=== PATIENT | female | born 1945 | race African-American/Black ===

== ENCOUNTER 2018-02-28 10:13 | Inpatient (IN) ==
[2018-02-28] MEDS ORDERED: SODIUM CHLORIDE 0.9% 500 ML IV STA (10:47)
[2018-02-28] MEDS ORDERED: METOCLOPRAMIDE 10 MG/2 ML VIAL IV STA (10:47)
[2018-02-28] MEDS ORDERED: METOCLOPRAMIDE 10 MG/2 ML VIAL ONE (10:51)
[2018-02-28 11:16] LABS: Basophils % 0.2 % (0.0-0.8); Eosinophils % 0.2 % (0.00-10.9); Hemoglobin 12.5 GM/DL (12.0-16.0); Immature Granulocytes % 0.4 %; Immature Granulocytes Absolute 0.04 #; Lymphocytes # 1.2 10*3/uL (1.4-4.0); Lymphocytes % 11.8 % (21.3-54.2); Mean Corpuscular HGB Conc 33.8 GM/DL (32-36); Mean Corpuscular Hemoglobin 27 PG (27-34); Mean Corpuscular Volume 78.4 FL (87-102); Mean Platelet Volume 11.8 FL (9.6-12.0); Monocytes # 0.9 10*3/uL (0.11-0.8); Monocytes % 8.8 % (1.7-12.7); Neutrophils # 7.7 10*3/uL (1.4-7.4); Neutrophils % 78.6 % (38.7-73.9); Platelet Count 232 T/CUMM (130-400); Red Blood Count 4.72 MC/CUMM (3.8-5.5); Red Cell Distribution Width 14.7 % (9.3-17.3); White Blood Count 9.8 T/CUMM (4-12)
[2018-02-28 11:23] LABS: Apearance,Urine CLOUDY (Clear); Bacteria,Urine Few /HPF (Few); Bilirubin,Urine Negative (Negative); Blood, Urine Small mg/dL (Negative); Glucose,Urine (UA) Negative (Negative); Ketones,Urine Negative (Negative); Mucus,Urine Occasional /LPF (Occasional); Nitrite,Urine Negative (Negative); Protein,Urine Negative; Squamous Epithelial Cell,Urine Occasional /HPF (0-10); Urine Color Yellow (Yellow); Urine Specific Gravity 1.004 (1.001-1.035); Urine Urobilinogen < 2.0 EU/DL (0.2-1.0); WBC,Urine 549 /HPF (0-6)
[2018-02-28 11:27] LABS: PT Patient Result 10.6 SECS
[2018-02-28 11:34] LABS: Bilirubin,Total 0.6 MG/DL (0.2-1.0); Calcium 9.4 MG/DL (8.5-10.1); Osmolality,Calculated 257.4 MOS/KG (273-304)
[2018-02-28] MEDS ORDERED: SODIUM CHLORIDE 0.9% 1,000 ML IV STA (12:08)
[2018-02-28] MEDS ORDERED: ACETAMINOPHEN 325 MG TABLET PO PRN (12:23)
[2018-02-28] MEDS ORDERED: DEXTROSE 50% 25 GM/50 ML VIAL IV PRN (12:23)
[2018-02-28] MEDS ORDERED: ONDANSETRON 4 MG/2 ML VIAL IV PRN (12:23)
[2018-02-28] MEDS ORDERED: GLUCAGON 1 MG VIAL IM PRN (12:23)
[2018-02-28] MEDS ORDERED: ALUMINUM/MAGNES/SIMETH MAX STR 30 ML UDCUP PO PRN (12:30)
[2018-02-28] MEDS ORDERED: MAGNESIUM HYDROXIDE SUSP 30 ML UDCUP PO PRN (12:30)
[2018-02-28] MEDS: ENOXAPARIN 40 MG/0.4 ML SYRINGE SUBCUT SCH (14:33)
[2018-02-28] MEDS: PANTOPRAZOLE 40 MG TABLET PO SCH (14:33)
[2018-02-28] MEDS: cefTRIAXone 1,000 MG in SYRINGE 1 EACH IV SCH (14:33)
[2018-02-28] MEDS: SODIUM CHLORIDE 0.9% 1,000 ML IV SCH (14:34)
[2018-02-28] MEDS: INSULIN REGULAR 100 UNIT/ML SUBCUT SCH ×2 (19:12→20:32)
[2018-03-01 06:23] LABS: Calcium 9.2 MG/DL (8.5-10.1); Osmolality,Calculated 276.5 MOS/KG (273-304); Potassium 3.9 MMOL/L (3.5-5.1)
[2018-03-01] MEDS: SODIUM CHLORIDE 0.9% 1,000 ML IV SCH (06:30)
[2018-03-01 06:38] LABS: Basophils % 0.2 % (0.0-0.8); Eosinophils % 0.3 % (0.00-10.9); Hematocrit 38.6 VOL% (35.7-47.0); Hemoglobin 12.7 GM/DL (12.0-16.0); Immature Granulocytes % 0.4 %; Immature Granulocytes Absolute 0.05 #; Lymphocytes # 1.7 10*3/uL (1.4-4.0); Lymphocytes % 15.1 % (21.3-54.2); Mean Corpuscular HGB Conc 32.9 GM/DL (32-36); Mean Corpuscular Hemoglobin 27 PG (27-34); Mean Corpuscular Volume 80.6 FL (87-102); Mean Platelet Volume 11.3 FL (9.6-12.0); Monocytes # 1.2 10*3/uL (0.11-0.8); Monocytes % 10.9 % (1.7-12.7); Neutrophils # 8.1 10*3/uL (1.4-7.4); Neutrophils % 73.1 % (38.7-73.9); Platelet Count 241 T/CUMM (130-400); Red Blood Count 4.79 MC/CUMM (3.8-5.5); Red Cell Distribution Width 14.8 % (9.3-17.3); White Blood Count 11.1 T/CUMM (4-12)
[2018-03-01] MEDS: INSULIN REGULAR 100 UNIT/ML SUBCUT SCH ×2 (08:22→12:26)
[2018-03-01] MEDS ORDERED: DONEPEZIL 10 MG TABLET PO SCH (09:00)
[2018-03-01] MEDS ORDERED: BISOPROLOL 5 MG TABLET PO SCH (09:00)
[2018-03-01] MEDS ORDERED: amLODIPine 10 MG TABLET PO SCH (09:00)
[2018-03-01] MEDS: PANTOPRAZOLE 40 MG TABLET PO SCH (09:13)
[2018-03-01 12:20] VITALS: BP 153/85
[2018-03-01] MEDS: ENOXAPARIN 40 MG/0.4 ML SYRINGE SUBCUT SCH (12:31)
[2018-03-01] MEDS: cefTRIAXone 1,000 MG in SYRINGE 1 EACH IV SCH (12:47)
== END 2018-03-01 15:22 | disposition home or self-care (01) | DRG 640 ==
LOC: N.ED 10:13 → N.EDINP 12:23 → N.2E 14:19
PROVIDERS: ADMIT Internal Medicine; ATTEND Internal Medicine

== ENCOUNTER 2022-02-02 19:09 | Inpatient (IN) ==
[2022-02-02 19:38] LABS: Basophils % 0.3 % (0.0-0.8); Eosinophils # 0.2 10*3/uL (0.0-0.87); Eosinophils % 2.3 % (0.00-10.9); Immature Granulocytes % 0.8 %; Immature Granulocytes Absolute 0.07 #; Lymphocytes % 22.2 % (21.3-54.2); Mean Corpuscular HGB Conc 26.5 GM/DL (32-36); Mean Corpuscular Volume 65.9 FL (87-102); Mean Platelet Volume 11.1 FL (9.6-12.0); Monocytes # 0.9 10*3/uL (0.11-0.8); Monocytes % 9.9 % (1.7-12.7); Neutrophils % 64.5 % (38.7-73.9); Platelet Count 330 T/CUMM (130-400); Red Blood Count 2.58 MC/CUMM (3.8-5.5); Red Cell Distribution Width 18.8 % (9.3-17.3)
[2022-02-02 19:46] LABS: Hemoglobin 4.5 GM/DL (12.0-16.0)
[2022-02-02 20:04] LABS: INR 1.1; PT Patient Result 11.8 SECS (10.5-12.0)
[2022-02-02 20:09] LABS: Alanine Aminotransferase 9 U/L (13-56); Albumin 2.8 G/DL (3.4-5.0); Alkaline Phosphatase 107 U/L (45-117); Aspartate Amino Transferase 13 U/L (0-37); Bilirubin,Total < 0.39 MG/DL (0.20-1.00); Blood Urea Nitrogen 22 MG/DL (7-18); Calcium 9.2 MG/DL (8.5-10.1); Carbon Dioxide 20 MMOL/L (21-32); Chloride 112 MMOL/L (98-107); Glucose 81 MG/DL (74-106); Osmolality,Calculated 282.3 MOS/KG (273-304); Potassium 5.1 MMOL/L (3.5-5.1); Sodium 141 MMOL/L (136-145); Total Protein 6.3 G/DL (6.4-8.2)
[2022-02-02 20:14] LABS: Eosinophils 3 % (0-10); Lymphocytes 20 % (20-55); Total Cells Counted 100
[2022-02-02 20:16] LABS: Polychromasia Slight
[2022-02-02 20:18] LABS: Anisocytosis 1+; Hypochromia 2+; Microcytosis 1+
[2022-02-02 20:21] LABS: Ovalocytes Few
[2022-02-02 20:22] LABS: Tear Drop Cells Few
[2022-02-02] MEDS ORDERED: PANTOPRAZOLE INJ 80 MG in SODIUM CHLORIDE 0.9% 100 ML IV ONE (20:48)
[2022-02-02] MEDS ORDERED: SODIUM CHLORIDE 0.9% 1,000 ML IV PRN (20:56)
[2022-02-02] MEDS ORDERED: ACETAMINOPHEN 325 MG TABLET PO PRN (20:56)
[2022-02-02] MEDS ORDERED: ONDANSETRON 4 MG/2 ML VIAL IV PRN (20:56)
[2022-02-02] MEDS ORDERED: GLUCAGON 1 MG VIAL IM PRN (20:56)
[2022-02-02 21:00] LABS: Platelet Estimate Normal
[2022-02-02] MEDS ORDERED: DEXTROSE 10% 250 ML BAG IV PRN (21:07)
[2022-02-02] MEDS ORDERED: FUROSEMIDE 40 MG/4 ML VIAL IV ONE (21:30)
[2022-02-02] MEDS: DOCUSATE SODIUM 100 MG CAPSULE PO SCH (21:45)
[2022-02-02] MEDS: INSULIN REGULAR 100 UNIT/ML SUBCUT SCH (21:53)
[2022-02-02] MEDS ORDERED: PANTOPRAZOLE 40 MG VIAL IV ONE (21:56)
[2022-02-02] MEDS ORDERED: PANTOPRAZOLE INJ 200 MG in SODIUM CHLORIDE 0.9% 250 ML IV SCH (23:00)
[2022-02-03] MEDS ORDERED: MELATONIN 3 MG TABLET PO PRN (02:34)
[2022-02-03] MEDS: INSULIN REGULAR 100 UNIT/ML SUBCUT SCH ×4 (07:34→22:09)
[2022-02-03 08:27] LABS: Basophils % 0.2 % (0.0-0.8); Eosinophils # 0.2 10*3/uL (0.0-0.87); Eosinophils % 1.2 % (0.00-10.9); Hematocrit 24.8 VOL% (35.7-47.0); Hemoglobin 7.4 GM/DL (12.0-16.0); Immature Granulocytes % 0.6 %; Immature Granulocytes Absolute 0.07 #; Lymphocytes # 1.7 10*3/uL (1.4-4.0); Lymphocytes % 13.5 % (21.3-54.2); Mean Corpuscular HGB Conc 29.8 GM/DL (32-36); Mean Corpuscular Volume 73.6 FL (87-102); Monocytes # 1.2 10*3/uL (0.11-0.8); NRBC # 0.02 10*3/uL; Neutrophils % 74.5 % (38.7-73.9); Platelet Count 300 T/CUMM (130-400); Red Blood Count 3.37 MC/CUMM (3.8-5.5); White Blood Count 12.4 T/CUMM (4-12)
[2022-02-03 08:37] LABS: Calcium 8.6 MG/DL (8.5-10.1); Osmolality,Calculated 281.4 MOS/KG (273-304); Potassium 5.1 MMOL/L (3.5-5.1)
[2022-02-03 09:21] LABS: Hypochromia 1+; Microcytosis 1+; Platelet Estimate Adequate; Target Cells Few
[2022-02-03] MEDS ORDERED: ZIPRASIDONE 20 MG/1 ML VIAL IM ONE (10:51)
[2022-02-03] MEDS: MEMANTINE 10 MG TABLET PO SCH ×2 (11:13→21:59)
[2022-02-03] MEDS: DONEPEZIL 10 MG TABLET PO SCH (11:14)
[2022-02-03] MEDS: amLODIPine 10 MG TABLET PO SCH (11:14)
[2022-02-03] MEDS: SERTRALINE 25 MG TABLET PO SCH (11:15)
[2022-02-03] MEDS: QUEtiapine 25 MG TABLET PO SCH (11:16)
[2022-02-03] MEDS: METOPROLOL TARTRATE 25 MG TABLET PO SCH ×2 (11:17→21:59)
[2022-02-03] MEDS: ATORVASTATIN 40 MG TABLET PO SCH (11:18)
[2022-02-03] MEDS: CALCIUM (CARBONATE)/VITAMIN D 600 MG-400 UNIT TABLET PO SCH (11:18)
[2022-02-03] MEDS: PANTOPRAZOLE 40 MG VIAL IV SCH ×2 (11:19→21:58)
[2022-02-03] MEDS: DOCUSATE SODIUM 100 MG CAPSULE PO SCH ×2 (11:19→21:59)
[2022-02-03] MEDS: rOPINIRole 0.25 MG TABLET PO SCH (11:21)
[2022-02-03] MEDS: SODIUM CHLORIDE 0.9% 1,000 ML IV SCH (13:40)
[2022-02-03] MEDS: traZODone 50 MG TABLET PO SCH (21:58)
[2022-02-04 05:10] LABS: Basophils % 0.3 % (0.0-0.8); Eosinophils # 0.3 10*3/uL (0.0-0.87); Hematocrit 27.5 VOL% (35.7-47.0); Hemoglobin 8.1 GM/DL (12.0-16.0); Immature Granulocytes % 0.6 %; Immature Granulocytes Absolute 0.07 #; Lymphocytes % 16.6 % (21.3-54.2); Mean Corpuscular HGB Conc 29.5 GM/DL (32-36); Mean Corpuscular Volume 73.3 FL (87-102); Monocytes # 1.3 10*3/uL (0.11-0.8); Monocytes % 10.9 % (1.7-12.7); NRBC # 0.02 10*3/uL; Neutrophils % 69.6 % (38.7-73.9); Platelet Count 304 T/CUMM (130-400); Red Blood Count 3.75 MC/CUMM (3.8-5.5); Red Cell Distribution Width 25.2 % (9.3-17.3); White Blood Count 12.2 T/CUMM (4-12)
[2022-02-04 05:23] LABS: Calcium 9.1 MG/DL (8.5-10.1); Osmolality,Calculated 292.4 MOS/KG (273-304); Potassium 4.9 MMOL/L (3.5-5.1)
[2022-02-04] MEDS: CALCIUM (CARBONATE)/VITAMIN D 600 MG-400 UNIT TABLET PO SCH (09:10)
[2022-02-04] MEDS: DONEPEZIL 10 MG TABLET PO SCH (09:10)
[2022-02-04] MEDS: SERTRALINE 25 MG TABLET PO SCH (09:10)
[2022-02-04] MEDS: rOPINIRole 0.25 MG TABLET PO SCH (09:10)
[2022-02-04] MEDS: MEMANTINE 10 MG TABLET PO SCH ×2 (09:10→21:22)
[2022-02-04] MEDS: amLODIPine 10 MG TABLET PO SCH (09:10)
[2022-02-04] MEDS: DOCUSATE SODIUM 100 MG CAPSULE PO SCH ×2 (09:10→21:22)
[2022-02-04] MEDS: METOPROLOL TARTRATE 25 MG TABLET PO SCH ×2 (09:10→21:22)
[2022-02-04] MEDS: PANTOPRAZOLE 40 MG VIAL IV SCH ×2 (09:11→21:49)
[2022-02-04] MEDS: INSULIN REGULAR 100 UNIT/ML SUBCUT SCH ×4 (09:18→21:06)
[2022-02-04] MEDS: QUEtiapine 25 MG TABLET PO SCH (10:21)
[2022-02-04] MEDS: SODIUM CHLORIDE 0.9% 1,000 ML IV SCH (10:22)
[2022-02-04] MEDS: SODIUM CHLORIDE 0.45% 1,000 ML IV SCH (16:43)
[2022-02-04] MEDS: traZODone 50 MG TABLET PO SCH (21:22)
[2022-02-05] MEDS: SODIUM CHLORIDE 0.45% 1,000 ML IV SCH
[2022-02-05 05:51] LABS: Basophils # 0.1 10*3/uL (0.0-0.2); Basophils % 0.4 % (0.0-0.8); Eosinophils # 0.3 10*3/uL (0.0-0.87); Hematocrit 27.6 VOL% (35.7-47.0); Hemoglobin 7.9 GM/DL (12.0-16.0); Immature Granulocytes % 0.5 %; Immature Granulocytes Absolute 0.06 #; Lymphocytes # 2.2 10*3/uL (1.4-4.0); Lymphocytes % 19.8 % (21.3-54.2); Mean Corpuscular HGB Conc 28.6 GM/DL (32-36); Monocytes # 1.4 10*3/uL (0.11-0.8); Neutrophils % 64.3 % (38.7-73.9); Platelet Count 321 T/CUMM (130-400); Red Blood Count 3.68 MC/CUMM (3.8-5.5); Red Cell Distribution Width 26.4 % (9.3-17.3); White Blood Count 11.3 T/CUMM (4-12)
[2022-02-05 05:54] LABS: Calcium 9.1 MG/DL (8.5-10.1); Osmolality,Calculated 297.9 MOS/KG (273-304); Potassium 4.4 MMOL/L (3.5-5.1)
[2022-02-05 06:16] LABS: Hypochromia 1+
[2022-02-05 06:17] LABS: Microcytosis 1+; Ovalocytes Few; Platelet Estimate Normal
[2022-02-05] MEDS: CALCIUM (CARBONATE)/VITAMIN D 600 MG-400 UNIT TABLET PO SCH (09:10)
[2022-02-05] MEDS: ATORVASTATIN 40 MG TABLET PO SCH (09:10)
[2022-02-05] MEDS: INSULIN REGULAR 100 UNIT/ML SUBCUT SCH ×4 (09:10→21:07)
[2022-02-05] MEDS: METOPROLOL TARTRATE 25 MG TABLET PO SCH ×2 (09:10→21:06)
[2022-02-05] MEDS: DOCUSATE SODIUM 100 MG CAPSULE PO SCH ×2 (09:10→21:06)
[2022-02-05] MEDS: DONEPEZIL 10 MG TABLET PO SCH (09:10)
[2022-02-05] MEDS: amLODIPine 10 MG TABLET PO SCH (09:11)
[2022-02-05] MEDS: SERTRALINE 25 MG TABLET PO SCH (09:11)
[2022-02-05] MEDS: rOPINIRole 0.25 MG TABLET PO SCH (09:11)
[2022-02-05] MEDS: PANTOPRAZOLE 40 MG VIAL IV SCH ×2 (09:11→21:28)
[2022-02-05] MEDS: MEMANTINE 10 MG TABLET PO SCH ×2 (09:11→21:06)
[2022-02-05] MEDS: QUEtiapine 25 MG TABLET PO SCH (09:11)
[2022-02-05] MEDS: LACTATED RINGERS 1,000 ML IV SCH ×3 (14:06→23:39)
[2022-02-05] MEDS: traZODone 50 MG TABLET PO SCH (21:06)
[2022-02-06 05:22] LABS: Basophils % 0.3 % (0.0-0.8); Eosinophils # 0.3 10*3/uL (0.0-0.87); Eosinophils % 3.1 % (0.00-10.9); Hematocrit 25.4 VOL% (35.7-47.0); Hemoglobin 7.3 GM/DL (12.0-16.0); Immature Granulocytes % 0.4 %; Immature Granulocytes Absolute 0.04 #; Lymphocytes # 2.1 10*3/uL (1.4-4.0); Lymphocytes % 22.4 % (21.3-54.2); Mean Corpuscular HGB Conc 28.7 GM/DL (32-36); Mean Corpuscular Volume 74.9 FL (87-102); Mean Platelet Volume 11.4 FL (9.6-12.0); Monocytes # 1.1 10*3/uL (0.11-0.8); Monocytes % 11.4 % (1.7-12.7); Neutrophils % 62.4 % (38.7-73.9); Platelet Count 272 T/CUMM (130-400); Red Blood Count 3.39 MC/CUMM (3.8-5.5); Red Cell Distribution Width 26.9 % (9.3-17.3); White Blood Count 9.3 T/CUMM (4-12)
[2022-02-06 05:33] LABS: Calcium 8.6 MG/DL (8.5-10.1); Osmolality,Calculated 291.3 MOS/KG (273-304); Potassium 4.5 MMOL/L (3.5-5.1)
[2022-02-06] MEDS: LACTATED RINGERS 1,000 ML IV SCH ×2 (06:21→21:50)
[2022-02-06] MEDS ORDERED: LACTATED RINGERS 1,000 ML IV SCH (08:00)
[2022-02-06] MEDS: INSULIN REGULAR 100 UNIT/ML SUBCUT SCH ×4 (08:42→21:34)
[2022-02-06] MEDS: PANTOPRAZOLE 40 MG VIAL IV SCH ×2 (08:50→22:39)
[2022-02-06] MEDS ORDERED: LIDOCAINE 2% 5 ML VIAL ONE (09:44)
[2022-02-06] MEDS ORDERED: propofoL 200 MG/20 ML VIAL IV ONE (09:44)
[2022-02-06] MEDS: SERTRALINE 25 MG TABLET PO SCH (11:10)
[2022-02-06] MEDS: METOPROLOL TARTRATE 25 MG TABLET PO SCH ×2 (11:10→20:32)
[2022-02-06] MEDS: DOCUSATE SODIUM 100 MG CAPSULE PO SCH ×2 (11:10→20:32)
[2022-02-06] MEDS: MEMANTINE 10 MG TABLET PO SCH ×2 (11:10→20:32)
[2022-02-06] MEDS: rOPINIRole 0.25 MG TABLET PO SCH (11:11)
[2022-02-06] MEDS: QUEtiapine 25 MG TABLET PO SCH (11:11)
[2022-02-06] MEDS: CALCIUM (CARBONATE)/VITAMIN D 600 MG-400 UNIT TABLET PO SCH (11:11)
[2022-02-06] MEDS: amLODIPine 10 MG TABLET PO SCH (11:11)
[2022-02-06] MEDS: DONEPEZIL 10 MG TABLET PO SCH (11:11)
[2022-02-06] MEDS ORDERED: BISACODYL 5 MG TABLET PO ONE (12:00)
[2022-02-06] MEDS ORDERED: POLYETHYLENE GLYCOL POWDER 255 GM BOTTLE PO ONE (18:00)
[2022-02-06] MEDS: traZODone 50 MG TABLET PO SCH (20:32)
[2022-02-07] MEDS: LACTATED RINGERS 1,000 ML IV SCH (01:36)
[2022-02-07 06:29] LABS: Basophils % 0.4 % (0.0-0.8); Eosinophils # 0.2 10*3/uL (0.0-0.87); Eosinophils % 2.1 % (0.00-10.9); Hematocrit 26.7 VOL% (35.7-47.0); Hemoglobin 7.6 GM/DL (12.0-16.0); Immature Granulocytes % 0.5 %; Immature Granulocytes Absolute 0.05 #; Lymphocytes # 1.7 10*3/uL (1.4-4.0); Lymphocytes % 16.2 % (21.3-54.2); Mean Corpuscular HGB Conc 28.5 GM/DL (32-36); Mean Corpuscular Volume 75.2 FL (87-102); Mean Platelet Volume 11.1 FL (9.6-12.0); Monocytes # 1.2 10*3/uL (0.11-0.8); Monocytes % 10.9 % (1.7-12.7); Neutrophils % 69.9 % (38.7-73.9); Platelet Count 275 T/CUMM (130-400); Red Blood Count 3.55 MC/CUMM (3.8-5.5); Red Cell Distribution Width 27.4 % (9.3-17.3); White Blood Count 10.8 T/CUMM (4-12)
[2022-02-07 06:46] LABS: Calcium 8.8 MG/DL (8.5-10.1); Osmolality,Calculated 283.8 MOS/KG (273-304); Potassium 3.7 MMOL/L (3.5-5.1)
[2022-02-07 06:54] LABS: Anisocytosis 1+; Hypochromia 1+; Microcytosis 1+; Ovalocytes Slight; Polychromasia Slight; Target Cells Slight
[2022-02-07 06:55] LABS: Platelet Estimate Normal
[2022-02-07] MEDS: INSULIN REGULAR 100 UNIT/ML SUBCUT SCH ×4 (09:15→20:40)
[2022-02-07] MEDS ORDERED: propofoL 200 MG/20 ML VIAL IV ONE (10:31)
[2022-02-07] MEDS ORDERED: LIDOCAINE 2% 5 ML VIAL ONE (10:31)
[2022-02-07] MEDS: PANTOPRAZOLE 40 MG VIAL IV SCH ×2 (12:41→21:54)
[2022-02-07] MEDS: CALCIUM (CARBONATE)/VITAMIN D 600 MG-400 UNIT TABLET PO SCH (12:42)
[2022-02-07] MEDS: rOPINIRole 0.25 MG TABLET PO SCH (12:42)
[2022-02-07] MEDS: SERTRALINE 25 MG TABLET PO SCH (12:42)
[2022-02-07] MEDS: METOPROLOL TARTRATE 25 MG TABLET PO SCH ×2 (12:42→20:33)
[2022-02-07] MEDS: QUEtiapine 25 MG TABLET PO SCH (12:43)
[2022-02-07] MEDS: ATORVASTATIN 40 MG TABLET PO SCH (12:43)
[2022-02-07] MEDS: DOCUSATE SODIUM 100 MG CAPSULE PO SCH ×2 (12:43→20:33)
[2022-02-07] MEDS: amLODIPine 10 MG TABLET PO SCH (12:43)
[2022-02-07] MEDS: DONEPEZIL 10 MG TABLET PO SCH (12:43)
[2022-02-07] MEDS: MEMANTINE 10 MG TABLET PO SCH ×2 (12:44→20:33)
[2022-02-07] MEDS ORDERED: MAGNESIUM SULF RIDER 4 GM/100 ML PREMIX IV ONE (14:36)
[2022-02-07] MEDS: traZODone 50 MG TABLET PO SCH (20:33)
[2022-02-08] MEDS: LACTATED RINGERS 1,000 ML IV SCH ×3 (00:13→08:50)
[2022-02-08 07:28] LABS: Basophils % 0.2 % (0.0-0.8); Eosinophils # 0.3 10*3/uL (0.0-0.87); Hematocrit 27.9 VOL% (35.7-47.0); Hemoglobin 8.1 GM/DL (12.0-16.0); Immature Granulocytes % 0.5 %; Immature Granulocytes Absolute 0.05 #; Lymphocytes # 1.7 10*3/uL (1.4-4.0); Lymphocytes % 18.8 % (21.3-54.2); Mean Corpuscular Volume 73.8 FL (87-102); Mean Platelet Volume 10.2 FL (9.6-12.0); Monocytes % 10.7 % (1.7-12.7); Neutrophils % 66.8 % (38.7-73.9); Platelet Count 268 T/CUMM (130-400); Red Blood Count 3.78 MC/CUMM (3.8-5.5); Red Cell Distribution Width 27.7 % (9.3-17.3); White Blood Count 9.2 T/CUMM (4-12)
[2022-02-08 07:48] LABS: Calcium 8.8 MG/DL (8.5-10.1); Osmolality,Calculated 285.7 MOS/KG (273-304); Potassium 3.6 MMOL/L (3.5-5.1)
[2022-02-08 07:57] LABS: Polychromasia Slight
[2022-02-08 07:58] LABS: Anisocytosis 1+; Hypochromia 3+; Platelet Estimate Normal; Poikilocytosis 1+
[2022-02-08] MEDS: INSULIN REGULAR 100 UNIT/ML SUBCUT SCH ×4 (09:51→20:56)
[2022-02-08] MEDS: DONEPEZIL 10 MG TABLET PO SCH (10:11)
[2022-02-08] MEDS: QUEtiapine 25 MG TABLET PO SCH (10:11)
[2022-02-08] MEDS: PANTOPRAZOLE 40 MG VIAL IV SCH ×2 (10:12→21:30)
[2022-02-08] MEDS: MEMANTINE 10 MG TABLET PO SCH ×2 (10:12→20:52)
[2022-02-08] MEDS: amLODIPine 10 MG TABLET PO SCH (10:12)
[2022-02-08] MEDS: METOPROLOL TARTRATE 25 MG TABLET PO SCH ×2 (10:12→20:51)
[2022-02-08] MEDS: SERTRALINE 25 MG TABLET PO SCH (10:12)
[2022-02-08] MEDS: rOPINIRole 0.25 MG TABLET PO SCH (10:12)
[2022-02-08] MEDS: DOCUSATE SODIUM 100 MG CAPSULE PO SCH ×2 (10:12→20:55)
[2022-02-08] MEDS: CALCIUM (CARBONATE)/VITAMIN D 600 MG-400 UNIT TABLET PO SCH (10:14)
[2022-02-08] MEDS: traZODone 50 MG TABLET PO SCH (20:52)
[2022-02-09] MEDS: LACTATED RINGERS 1,000 ML IV SCH (05:26)
[2022-02-09] MEDS ORDERED: FERROUS SULFATE 325 MG TABLET PO SCH (09:00)
[2022-02-09] MEDS: INSULIN REGULAR 100 UNIT/ML SUBCUT SCH (09:54)
[2022-02-09] MEDS: DOCUSATE SODIUM 100 MG CAPSULE PO SCH (10:07)
[2022-02-09] MEDS: DONEPEZIL 10 MG TABLET PO SCH (10:07)
[2022-02-09] MEDS: METOPROLOL TARTRATE 25 MG TABLET PO SCH (10:07)
[2022-02-09] MEDS: MEMANTINE 10 MG TABLET PO SCH (10:07)
[2022-02-09] MEDS: rOPINIRole 0.25 MG TABLET PO SCH (10:07)
[2022-02-09] MEDS: amLODIPine 10 MG TABLET PO SCH (10:07)
[2022-02-09] MEDS: QUEtiapine 25 MG TABLET PO SCH (10:07)
[2022-02-09] MEDS: ATORVASTATIN 40 MG TABLET PO SCH (10:07)
[2022-02-09] MEDS: SERTRALINE 25 MG TABLET PO SCH (10:07)
[2022-02-09] MEDS: CALCIUM (CARBONATE)/VITAMIN D 600 MG-400 UNIT TABLET PO SCH (10:07)
[2022-02-09] MEDS: PANTOPRAZOLE 40 MG VIAL IV SCH (10:09)
[2022-02-09 12:14] VITALS: BP 102/63
== END 2022-02-09 13:51 | DRG 392 ==
LOC: N.ED 19:09 → SUATTDRO 20:56 → N.EDINP 20:56 → N.TELEN 22:56
PROVIDERS: ADMIT Emergency Medicine; ATTEND Family Medicine